=== PATIENT | male | born 1955 | race Caucasian/White ===

== ENCOUNTER 2019-11-17 07:46 | Emergency (ER) | payer BC, SELFPAY ==
--- NOTE | ~2019-11-17 | XR_ITS ---
XR chest 2V DATE: 11/17/2019 08:22 INDICATION: Chest pain, left posterior shoulder pain radiating down left arm TECHNIQUE: PA and lateral views COMPARISON: None FINDINGS: Normal heart size. Aortic arch calcification. No hilar or mediastinal enlargement. No pulmo nary infiltrate or consolidation, pleural effusion or pulmonary vascular congestion or pneumothorax. There is mild degenerative spurring of the thoracic spine. IMPRESSION: No active cardiopulmonary disease Aortic calcification Reviewed, dictated and finalized at location A.
--- NOTE | 2019-11-17 07:56 | ECG_ITS ---
Measurements Intervals [place] Rate: 54 P: 50 HI: 173 QRS: 46 QRSD: 102 T: 25 QT: 387 QTc: 368 Interpretive Statements SINUS BRADYCARDIA BASELINE ARTIFACT- I, II, III, AVR, AVF BORDERLINE ECG Electronically Signed On 11-17-2019 11:51:12 CDT by Sal Villatoro D.O.
[2019-11-17 07:57] VITALS: BP 140/106; PULSE 55; RESP 18; TEMP 36.4; O2SAT 98
[2019-11-17 08:02] VITALS: PULSE 53
[2019-11-17 08:04] VITALS: O2SAT 100
--- NOTE | 2019-11-17 08:04 | ED.BACK ---
HPI - Back Pain/Injury General Chief Complaint: Chest Pain Stated Complaint: left shoulder pain Time Seen by Provider: 11/17/19 07:57 History of Present Illness HPI Narrative: Awoke from sleep early this morning with sharp pain at the medial border of the left scapula radiating into the left arm. Worse with neck flexion or any sudden movements. No associated symptoms. No recent change in activity. Works loading and unloading trucks. Related Data Allergies Allergy/AdvReac Type Severity Reaction Status Date / Time No Known Allergies Allergy Verified 11/17/19 08:03 Review of Systems Review of Systems: All systems reviewed & are unremarkable except as noted in HPI and below PMFSH Past Medical History Medical History (Updated 11/17/19 @ 17:20 by Michael Sheriff MD) Myocardial infarct Social History Social History Gender identity (if verbalized by the patient): Male Exam Const: General: healthy appearing, no acute distress and alert Orientation/consciousness: patient oriented x3 HENMT: Head: normal to inspection Neck: Neck: normal visual inspection and no lymphadenopathy Chest: Chest palpation & inspection: no tenderness Resp: Effort & Inspection: normal respiratory effort Auscultation: clear to auscultation bilaterally, no rales, no rhonchi and no wheezes Cardio: Jugular venous distension: no JVD Rate: regular rate Rhythm: regular rhythm Heart sounds: no murmurs GI: Inspection: non-distended GI Palp: Yes Soft to palpation and No Tenderness to palpation present (GI) Back/Spine/Pelvis: Other: tenderness over rhomboid on the left Skin: General skin exam: normal color Neuro: General: patient oriented x3 and moves all extremities Speech: normal speech Extrem: General: no edema Psych: Appearance: well kempt Affect: normal affect Course Vital Signs Vital signs: Vital Signs Temperature 36.4 C 11/17/19 07:57 Pulse Rate 55 L 11/17/19 07:57 Respiratory Rate 18 11/17/19 07:57 Blood Pressure 140/106 H 11/17/19 07:57 Pulse Oximetry 98 11/17/19 07:57 Temperature 36.4 C 11/17/19 07:57 Pulse Rate 46 L 11/17/19 09:28 Respiratory Rate 22 H 11/17/19 09:28 Blood Pressure 112/69 11/17/19 09:28 Pulse Oximetry 95 11/17/19 09:28 MDM - Back Pain/Injury MDM Narrative Medical decision making narrative: EKG show sinus bradycardia with no sogn of acute ischemia. troponin negative. History and exam consistent with musculoskeletal cause of pain. Medical Records Attestation: I reviewed the patient's medical records. Lab Data Attestation: I reviewed the patient's lab results. Result diagrams: 11/17/19 08:08 11/17/19 08:08 Labs: Lab Results 11/17/19 11/17/19 11/17/19 Range/Units 08:08 08:08 08:08 WBC 6.3 (4.5-10.0) K/mm3 RBC 4.21 L (4.6-6.20) M/mm3 Hgb 13.1 L (14.0-18.0) g/dL Hct 39.1 L (42.0-52.0) % MCV 92.9 (80-100) fl MCH 31.1 (26-34) pg MCHC 33.5 (32-36) g/dl RDW 13.2 (11.5-14.5) % Plt Count 236 (150-375) k/mm3 MPV 9.7 (7.4-10.4) fl Immature Gran % (Auto) 0.3 (0-0.5) % Neut % (Auto) 59.5 (45.5-73.1) % Lymph % (Auto) 22.2 (18.3-44.2) % Bonner % (Auto) 13.4 H (2.6-8.5) % Eos % (Auto) 4.0 (0-4.4) % Baso % (Auto) 0.6 (0.2-1.2) % Lymph # (Auto) 1.39 (0.9-3.2) K/mm3 Bonner # (Auto) 0.8 H (0.1-0.6) K/mm3 Eos # (Auto) 0.3 (0-0.3) K/mm3 Baso # (Auto) 0.0 (0.0-0.1) K/mm3 Abs Immat Gran (auto) 0.02 (0.00-0.031) K/mm3 Absolute Neuts (auto) 3.7 (1.3-6.7) K/mm3 Absolute Nucleated RBC 0.0 (0.0-0.012) K/mm3 Nucleated RBC % 0.0 (0.0-0.2) % PT 13.0 (11.1-14.7) Seconds INR 1.0 APTT 24.3 (22.3-36.8) SECONDS Sodium 138 (137-145) mmol/L Potassium 5.2 H (3.4-5.0) mmol/L Chloride 107 (98-107) mmol/L Carbon Dioxide 20 L (22-30) mmol/L BUN 26 H (9-20
[2019-11-17 08:13] LABS: Basophils Percent Auto 0.6 % (0.2-1.2); Eosinophils Absolute Auto 0.3 K/mm3 (0-0.3); Hematocrit 39.1 % (42.0-52.0); Hemoglobin 13.1 g/dL (14.0-18.0); Immature Granulocyte Absolute 0.02 K/mm3 (0.00-0.031); Immature Granulocyte Percent A 0.3 % (0-0.5); Lymphocytes Absolute Auto 1.39 K/mm3 (0.9-3.2); Lymphocytes Percent Auto 22.2 % (18.3-44.2); Mean Corpuscular HGB Conc 33.5 g/dl (32-36); Mean Corpuscular Hemoglobin 31.1 pg (26-34); Mean Corpuscular Volume 92.9 fl (80-100); Mean Platelet Volume 9.7 fl (7.4-10.4); Monocytes Absolute Auto 0.8 K/mm3 (0.1-0.6); Monocytes Percent Auto 13.4 % (2.6-8.5); Neutrophils Absolute Auto 3.7 K/mm3 (1.3-6.7); Neutrophils Percent Auto 59.5 % (45.5-73.1); Platelet Count Result 236 k/mm3 (150-375); Red Blood Count 4.21 M/mm3 (4.6-6.20); Red Cell Distribution Width 13.2 % (11.5-14.5); White Blood Count 6.3 K/mm3 (4.5-10.0)
[2019-11-17 08:27] LABS: Blood Urea Nitrogen 26 mg/dL (9-20); Calcium 9.5 mg/dL (8.4-10.2); Carbon Dioxide 20 mmol/L (22-30); Chloride 107 mmol/L (98-107); Estimated CRCL calculation 72 ml/min; Estimated Glomerular Filt Rate > 60; Glucose 150 mg/dL (75-110); Partial Thromboplastin Time 24.3 SECONDS (22.3-36.8); Potassium 5.2 mmol/L (3.4-5.0); Sodium 138 mmol/L (137-145)
[2019-11-17 08:37] LABS: Troponin I < 0.012 ng/mL (0.000-0.034)
[2019-11-17 09:28] VITALS: BP 112/69; PULSE 46; RESP 22; O2SAT 95
== END 2019-11-17 09:30 | disposition home or self-care (01) ==
PROVIDERS: Emergency Provider Emergency Medicine
DX: S29.012A Strain of muscle and tendon of back wall of thorax, initial encounter (principal); I25.2 Old myocardial infarction; R00.1 Bradycardia, unspecified; X58.XXXA Exposure to other specified factors, initial encounter
CPT/HCPCS: 36415; 71046; 80048; 84484; 85025; 85610; 85730; 93005; 96374; 99284; J3360